=== PATIENT | male | born 1990 | race Caucasian/White ===

== ENCOUNTER 2016-11-19 00:52 | Emergency (ER) | payer OTHER ==
[~2016-11-19] VITALS: Ht 180.3 cm; Wt 75.1 kg
[~2016-11-19 00:52] MED LIST: AMBIEN10 MG PO; AMOXICILLIN500 M1 PO; CLINDAMYCIN HC150 MG PO; DEPAKOTE125 MG PO; DEPAKOTE500 MG PO; KLONOPIN1 MG PO; LORTAB 5-325 M1 EACH PO; MOTRIN600 MG PO; MOTRIN800 MG PO; NAPROSYN500 MG PO; NEURONTIN100 MG PO; NORCO 5/3251 TABLET PO; PEN-VEE K,VEET500 MG PO; PERIDEX1 ML MM; TRAMADOL HCL50 MG PO; ULTRAM50 MG PO
[2016-11-19 01:23] LABS: HEMATOCRIT 45.2 % (38.0-50.0); MCH 29.2 PG (29.0-34.0); MCHC 33.6 G/DL (30.0-36.0); MCV 86.8 FL (86-99); MEAN PLAT.VOLUME 10.5 uM^3 (9.0-12.4); PLATELET COUNT 236 K/uL (156-360); RBC DIS.WIDTH-CV 12.8 % (11.8-14.6); RED BLOOD COUNT 5.21 M/uL (4.00-5.50); WHITE BLOOD COUNT 13.1 K/uL (4.1-10.2)
[2016-11-19 01:40] LABS: CHLORIDE 105 mEq/L (99-109); POTASSIUM 4.2 mEq/L (3.7-5.4); SODIUM 142 mEq/L (136-147)
[2016-11-19 01:42] LABS: GLUCOSE 89 mg/dL (70-99)
[2016-11-19 01:43] LABS: ANION GAP 11 MEQ/L (2-14)
[2016-11-19 01:45] LABS: SERUM ETHYL ALCOHOL 38 mg/dL
[2016-11-19 01:46] LABS: GFR ESTIMATE (CALCULATED) > 59 mL/min/
[2016-11-19 01:47] LABS: UREA NITROGEN (BUN) 12 mg/dL (9-23)
[2016-11-19 02:05] LABS: ADD MEDTOX COMMENT Y; AMPHETAMINE NEGATIVE (500 ng/mL); BARBITURATES NEGATIVE (200 ng/mL); BENZODIAZEPINES NEGATIVE (150 ng/mL); COCAINE NEGATIVE (150 ng/mL); INTERNAL CONTROLS VALID? YES; METHADONE NEGATIVE (200 ng/mL); METHAMPHETAMINE NEGATIVE (500 ng/mL); OPIATES (MORPHINE) PRESUMPTIVE POSITIVE (100 ng/mL); OXYCODONE NEGATIVE (100 ng/mL); PHENCYCLIDINE NEGATIVE (25 ng/mL); PROPOXYPHENE NEGATIVE (300 ng/mL); THC CANNABINOIDS PRESUMPTIVE POSITIVE (50 ng/mL); TRICYCLIC ANTIDEPRESSANTS NEGATIVE (300 ng/mL)
[2016-11-19] MEDS ORDERED: CLONIDINE HCL0.1 MG PO (03:05)
[2016-11-19] MEDS ORDERED: TRAZODONE HCL50 MG PO (03:05)
[2016-11-19 03:26] VITALS: BP 132/88
== END 2016-11-19 03:32 | disposition home or self-care (01) ==
LOC: EME 00:52
DX: F11.23 Opioid dependence with withdrawal (principal); F32.9 Major depressive disorder, single episode, unspecified; F10.99 Alcohol use, unspecified with unspecified alcohol-induced disorder; R11.2 Nausea with vomiting, unspecified; F17.200 Nicotine dependence, unspecified, uncomplicated
CPT/HCPCS: 80048; 84999; 85027; 90839; 99281; 99285; G0480